=== PATIENT | female | born 1945 | race Caucasian/White ===

== ENCOUNTER 2017-12-04 16:45 | Emergency (ER) | payer MEDICARE, MEDICAID ==
[~2017-12-04] VITALS: Ht 157.5 cm; Wt 75.0 kg
[2017-12-04 17:04] VITALS: BP 102/53
== END 2017-12-04 19:07 | disposition home or self-care (01) ==
LOC: ED 18:06
DX: S82.65XA Nondisplaced fracture of lateral malleolus of left fibula, initial encounter for closed fracture (principal); W01.0XXA Fall on same level from slipping, tripping and stumbling without subsequent striking against object, initial encounter; Y93.89 Activity, other specified; Y92.89 Other specified places as the place of occurrence of the external cause; Y99.8 Other external cause status
CPT/HCPCS: 99284